=== PATIENT | male | born 1985 | race Caucasian/White ===

== ENCOUNTER 2016-08-12 13:14 | Emergency (ER) | payer SELFPAY ==
[~2016-08-12 13:14] MED LIST: BACITRACIN30 GM TOP; NO MEDICATIONS; NORCO1 TAB 10/3 PO; PEN-VEE K PO; PENICILLIN V P500 MG PO; VIBRAMYCIN100 M1 PO; VICODIN 5/1 TAB 5/50 PO; VOLTAREN75 MG PO
== END 2016-08-12 16:03 | disposition left against medical advice (07) ==
LOC: SED 13:14
DX: Z53.21 Procedure and treatment not carried out due to patient leaving prior to being seen by health care provider (principal)

== ENCOUNTER 2016-08-28 14:18 | Emergency (ER) | payer SELFPAY | END 2016-08-28 15:20 | disposition home or self-care (01) | LOC: SED 14:18 | DX: K04.7 Periapical abscess without sinus (principal); F17.200 Nicotine dependence, unspecified, uncomplicated | CPT/HCPCS: 99282 ==

== ENCOUNTER 2016-09-30 17:55 | Emergency (ER) | payer OTHER ==
--- NOTE | ~2016-09-30 | EKG ---
PATIENT: JOSE LOPEZ UNIT #: [id number] Ventricular Rate: 79 BPM Atrial Rate: 79 BPM P-R Interval: 152 ms QRS Duration: 94 ms Q-T Interval: 370 ms QTC Calculation(Bezet): 424 ms P [place]: 60 degrees Calculated R [place]: 78 degrees Calculated T [place]: 38 degrees Diagnosis Line: Normal sinus rhythm with sinus arrhythmia Diagnosis Line: Normal ECG Diagnosis Line: No previous ECGs available Diagnosis Line: Confirmed by ANDREW FONSECA MD ([id number]) on Diagnosis Line: 10/02/2016 8:31:52 AM INTERPRETING MD: RAYMUNDO CAST
[2016-09-30 18:50] LABS: POC - CKMB 7.7 ng/mL (0.0-7.9); POC - TROPONIN <0.05 ng/mL (<=0.05)
[2016-09-30 18:56] LABS: ALKALINE PHOSPHATASE 77 U/L (32-92); ALT (SGPT) 54 U/L (10-40); AST (SGOT) 74 U/L (10-42); BILIRUBIN, DIRECT 0.1 mg/dL (0.0-0.2); BILIRUBIN,INDIRECT 0.3 mg/dL (0.0-0.9); BILIRUBIN,TOTAL 0.4 mg/dL (0.2-2.0); BLOOD UREA NITROGEN 18 mg/dL (9-23); CALCIUM SERUM 8.3 mg/dL (8.4-10.2); CARBON DIOXIDE 25 mmol/L (22-31); CHLORIDE 107 mmol/L (100-111); GLOM FILT RATE Estimated 101.3 mL/min (>60); GLUCOSE FASTING 74 mg/dL (70-110); POTASSIUM 3.7 mmol/L (3.5-5.1); PROTEIN TOTAL SERUM 6.9 g/dL (6.0-8.3); SALICYLATE <4.0 mg/dL; SODIUM 139 mmol/L (135-145)
[2016-09-30 19:02] LABS: ACETAMINOPHEN <10 ug/mL; ALCOHOL BLOOD <5 mg/dL (0)
== END 2016-09-30 19:13 | disposition home or self-care (01) ==
LOC: SED 17:55
PROVIDERS: Nurse Practitioner Family
DX: T43.621A Poisoning by amphetamines, accidental (unintentional), initial encounter (principal); T40.1X1A Poisoning by heroin, accidental (unintentional), initial encounter; T40.7X1A Poisoning by cannabis (derivatives), accidental (unintentional), initial encounter; F17.210 Nicotine dependence, cigarettes, uncomplicated
CPT/HCPCS: 36415; 80048; 80076; 82553; 82947; 84484; 93005; 99284; G0480